=== PATIENT | male | born 1970 | race American Indian/Alaskan Native ===

== ENCOUNTER 2021-06-10 08:53 | Outpatient (CLI) | payer OTHER ==
--- NOTE | 2021-06-10 09:57 | XRay Report ---
CERVICAL SPINE HISTORY: Back pain. COMPARISON: None. TECHNIQUE: 3 view(s) of the cervical spine obtained. FINDINGS: Vertebrae: Normal alignment. No fracture or significant abnormality. Disc Spaces:Moderate to severe degenerative disc change at C5/C6 and C6/C7 with prominent endplate os teophytosis. Facet Joints:No significant abnormality. Prevertebral Soft Tissues:No significant abnormality. Additional findings: None. IMPRESSION: Cervical spine without evidence of acute osseous injury. Moderate to severe degenerative disc change at C5/C6 and C6/C7. Signer Name: Driss Almaguer MD Signed: 06/10/2021 9:52 AM Workstation Name: [id number]
--- NOTE | 2021-06-10 09:58 | XRay Report ---
LUMBAR SPINE HISTORY: Back pain. COMPARISON: None. TECHNIQUE: 3 view(s) of the lumbar spine obtained. FINDINGS: Vertebrae: Normal alignment. No fracture or significant abnormality. Disc Spaces:Mild disc space narrowing and degenerative type change at L3/L4. Facet Joints:No significant abnormality. Prevertebral Soft Tissues:No significant abnormality. Additional findings: None. IMPRESSION: Lumbar spine without evidence of acute osseous injury. Mild degenerative change at L3/L4 disc space. Signer Name: Driss Almaguer MD Signed: 06/10/2021 9:54 AM Workstation Name: [id number]
== END 2021-06-10 08:54 | disposition home or self-care (01) ==
LOC: XRAY 08:53
PROVIDERS: ATTEND Internal Medicine
DX: M47.816 Spondylosis without myelopathy or radiculopathy, lumbar region (principal); M50.323 Other cervical disc degeneration at C6-C7 level; M50.322 Other cervical disc degeneration at C5-C6 level; M47.812 Spondylosis without myelopathy or radiculopathy, cervical region
CPT/HCPCS: 72040; 72100